=== PATIENT | male | born 1980 | race Hispanic/Latino ===

== ENCOUNTER 2017-08-15 18:58 | Emergency (ER) | payer SELFPAY ==
[2017-08-15] MEDS ORDERED: IBUPROFEN 400 MG TAB ONE (20:21)
[2017-08-15] MEDS ORDERED: CEPHALEXIN 250 MG CAP ONE (20:21)
--- NOTE | 2017-08-15 21:13 | ER ---
Nurse's Notes [facility] Name: Jason Alva Age: 36 yrs Sex: Male : 1980 Arrival Date: 08/15/2017 Time: 19:02 Bed 30 Private MD: Diagnosis: Laceration without foreign body of right index finger without damage to nail;Laceration without foreign body of right middle finger without damage to nail Presentation: 08/15 19:10 Presenting complaint: Patient states: Reports cutting right 2 nd and 3 rd digits with aj broken beer bottle last night. Full ROM noted in triage. Swelling noted to right 2 nd digit. 2 cm laceration noted to posterior right 2 nd digit and medial right 3 rd digit, no bleeding noted. Transition of care: patient was not received from another setting of care. Onset of symptoms was August 14, 2017. Care prior to arrival: None. 19:10 Method Of Arrival: Ambulatory aj 19:10 Acuity: MODE 4 aj Triage Assessment: 19:12 General: Appears in no apparent distress. comfortable, Behavior is calm, cooperative, aj appropriate for age. Pain: Complains of pain in dorsal aspect of middle phalanx of right index finger and palmar aspect of middle phalanx of right middle finger. Neuro: Level of Consciousness is awake, alert, obeys commands, Oriented to person, place, time, situation. Respiratory: Airway is patent Respiratory effort is even, unlabored, Respiratory pattern is regular, symmetrical. Derm: Skin is intact, is healthy with good turgor, Skin is pink, warm \T\ dry. normal. Musculoskeletal: Swelling present in dorsal aspect of middle phalanx of right index finger, dorsal aspect of proximal phalanx of right index finger and dorsal aspect of middle phalanx of right middle finger. Injury Description: Laceration sustained to dorsal aspect of middle phalanx of right index finger and palmar aspect of middle phalanx of right middle finger is clean, 0.5 to 2.5 cm long, was sustained 12-24 hours ago. no active bleeding noted at this time. Historical: - Allergies: 19:12 No Known Allergies; aj - Home Meds: 19:12 None [Active]; aj - PMHx: 19:12 None; aj - PSHx: 19:12 None; aj - Immunization history:: Last tetanus immunization: up to date. - Social history:: Smoking status: Patient/guardian denies using tobacco. Screenin:57 Abuse screen: Denies threats or abuse. Nutritional screening: No deficits noted. kb1 Tuberculosis screening: No symptoms or risk factors identified. Fall Risk None identified. Assessment: 19:57 General: Appears in no apparent distress. Behavior is calm, cooperative. Pain: kb1 Complains of pain in Right hand. Neuro: Level of Consciousness is awake, alert, obeys commands, Oriented to person, place, time, situation. Cardiovascular: Patient's skin is warm and dry. Respiratory: Airway is patent. GI: No signs and/or symptoms were reported involving the gastrointestinal system. : No signs and/or symptoms were reported regarding the genitourinary system. Derm: laceration to index and middle finger. States tripped last night and broke beer bottle in hand. 21:36 Reassessment: Patient appears in no apparent distress at this time. Patient and/or kb1 family updated on plan of care and expected duration. Pain level reassessed. Patient is alert, oriented x 3, equal unlabored respirations, skin warm/dry/pink. Vital Signs: 19:12 BP 151 / 105; Pulse 97; Resp 16; Temp 98.3; Pulse Ox 97% on R/A; Weight 90.72 kg; aj Height 5 ft. 11 in. (180.34 cm); Pain 4/10; 20:05 BP 121 / 88; kb1 19:12 Body Mass Index 27.89 (90.72 kg, 180.34 cm) aj ED Course: 19:02 Patient arrived in ED. mr 19:12 Triage completed. aj 19:12 Arm band placed on left wrist. Patient placed in waiting room, Patient notified of wait aj time. 19:14 Patient Provider evaluated patient in triage. aj 19:40 Aria Delcid, GRISEL is Primary Nurse. kb1 19:48 Jhonathan Leal PA is PHCP. cp 19:48 Malik Ontiveros MD is Attending Physician. cp 19:57 Patient has correct armband on for positive identification. Bed in low position. Call kb1 light in reach. Pulse ox on. NIBP on. 19:57 No provider procedures requiring assistance completed. Patient did not have IV access kb1 during this emergency room visit. 20:32 X-ray completed. Portable x-ray completed in exam room. Patient tolerated procedure bb2 well. 20:32 XRAY Hand RIGHT 3 View In Process Unspecified. EDMS 21:37 Wound care: to laceration located on Right index, middle, and ring finger was cleaned kb1 with Hibiclens, dressed with Neosporin, band aid. Administered Medications: 20:29 Drug: KeFLEX 500 mg Route: PO; kb1 21:38 Follow up: Response: No adverse reaction kb1 20:29 Drug: Ibuprofen 800 mg Route: PO; kb1 21:38 Follow up: Response: Pain is decreased kb1 Outcome: 21:12 Discharge ordered by . cp 21:37 Discharged to home ambulatory. kb1 21:37 Condition: improved 21:37 Discharge instructions given to patient, Instructed on discharge instructions, follow up and referral plans. medication usage, Demonstrated understanding of instructions, follow-up care, medications, Prescriptions given X 1. 21:39 Patient left the ED. kb1 Signatures: Dispatcher [employer] EDMS Malia Ying RN RN aj Rivera, Maria mr Jhonathan Leal PA PA cp Bock, Brittany bb2 Aria Delcid RN RN kb1 Corrections: (The following items were deleted from the chart) 19:12 19:10 Acuity: MODE 5 aj sherrie
--- NOTE | 2017-08-15 21:13 | RAD REPORT ---
EXAM DESCRIPTION: RAD - Hand Right 3 View - 08/15/2017 8:36 pm CLINICAL HISTORY: Hand pain comes second digit laceration COMPARISON: None. FINDINGS: No fracture is identified. There is no dislocation or periosteal reaction noted. Second d igit soft tissue injury is present with no foreign body. IMPRESSION: No acute bone or joint finding. No foreign body in the soft tissues.
--- NOTE | 2017-08-15 21:13 | EDPHYS ---
Physician Documentation [facility] Name: Jason Alva Age: 36 yrs Sex: Male : 1980 Arrival Date: 08/15/2017 Time: 19:02 Bed 30 Private MD: ED Physician Malik Ontiveros HPI: 08/15 20:30 This 36 yrs old Male presents to ER via Ambulatory with complaints of Finger cp Injury. 20:30 The patient or guardian reports injury, a laceration. The complaints affect the middle cp phalanx right index finger and middle phalanx right middle finger. 20:30 Context: resulted from a fall, while holding glass bottle. Onset: The symptoms/episode cp began/occurred last night, at 23:00. Historical: - Allergies: 19:12 No Known Allergies; aj - Home Meds: 19:12 None [Active]; aj - PMHx: 19:12 None; aj - PSHx: 19:12 None; aj - Immunization history:: Last tetanus immunization: up to date. - Social history:: Smoking status: Patient/guardian denies using tobacco. ROS: 20:35 Constitutional: Negative for body aches, chills, fever, poor PO intake. cp 20:35 Eyes: Negative for injury, pain, redness, and discharge. cp 20:35 Cardiovascular: Negative for chest pain, palpitations. 20:35 Respiratory: Negative for cough, shortness of breath, wheezing. 20:35 Abdomen/GI: Negative for abdominal pain, nausea, vomiting, and diarrhea. 20:35 Skin: Positive for laceration(s), of the right hand. 20:35 Neuro: Negative for altered mental status, headache, numbness, tingling, weakness. 20:35 All other systems are negative. Exam: 20:35 Constitutional: The patient appears in no acute distress, alert, awake, well developed, cp well nourished. 20:35 Head/Face: Normocephalic, atraumatic. cp 20:35 Eyes: Periorbital structures: appear normal, Conjunctiva: normal, no exudate, no injection, Lids and lashes: appear normal, bilaterally. 20:35 ENT: External ear(s): are unremarkable, Nose: is normal, Mouth: is normal. 20:35 Chest/axilla: Inspection: normal. 20:35 Cardiovascular: Rate: normal. 20:35 Respiratory: the patient does not display signs of respiratory distress, Respirations: normal, no use of accessory muscles, no retractions, no splinting, no tachypnea. 20:35 Abdomen/GI: Exam negative for discomfort, distension, guarding, Inspection: abdomen appears normal. 20:35 Musculoskeletal/extremity: Sensation intact. Tendon exam: specific tendon testing normal through active and passive range of motion 20:35 Skin: injury, laceration(s), the wound is approximately 2 cm(s), of the middle phalanx cp lateral side right index finger, the second wound is approximately 2 cm(s), of the middle phalanx lateral side right middle finger, that can be described as no foreign body, linear, without bleeding, noted mild erythema, mild swelling. Vital Signs: 19:12 BP 151 / 105; Pulse 97; Resp 16; Temp 98.3; Pulse Ox 97% on R/A; Weight 90.72 kg; aj Height 5 ft. 11 in. (180.34 cm); Pain 4/10; 20:05 BP 121 / 88; kb1 19:12 Body Mass Index 27.89 (90.72 kg, 180.34 cm) aj MDM: 19:48 Patient medically screened. 21:09 Data reviewed: vital signs, nurses notes, radiologic studies, plain films. 08/15 19:57 Order name: XRAY Hand RIGHT 3 View; Complete Time: 21:17 cp 08/15 21:17 Interpretation: Report reviewed. cp Administered Medications: 20:29 Drug: KeFLEX 500 mg Route: PO; kb1 21:38 Follow up: Response: No adverse reaction kb1 20:29 Drug: Ibuprofen 800 mg Route: PO; kb1 21:38 Follow up: Response: Pain is decreased kb1 Disposition: 08/16 05:56 Co-signature as Attending Physician, Malik Ontiveros MD I agree with the assessment and [facility] plan of care. Disposition: 08/15/17 21:12 Discharged to Home. Impression: Laceration without foreign body of right index finger without damage to nail, Laceration without foreign body of right middle finger without damage to nail. - Condition is Stable. - Discharge Instructions: Laceration Care, Adult. - Prescriptions for Keflex 500 mg Oral Capsule - take 1 capsule by ORAL route every 6 hours for 10 days; 40 capsule. - Medication Reconciliation Form, Thank You Letter, Antibiotic Education, Prescription Opioid Use form. - Follow up: Private Physician; When: 48 Hours; Reason: Wound Recheck. - Problem is new. - Symptoms are unchanged. Signatures: Dispatcher [employer] Malia Burns RN RN Jhonathan Bruno PA PA cp Wadley, Terrence, MD MD tw4 Aria Delcid RN RN kb1 Corrections: (The following items were deleted from the chart) 08/15 21:06 21:03 This 36 yrs old Male presents to ER via Ambulatory with complaints of cp Finger Injury. cp
== END 2017-08-15 21:39 | disposition home or self-care (01) ==
LOC: ER 18:58
DX: S61.212A Laceration without foreign body of right middle finger without damage to nail, initial encounter (principal); W25.XXXA Contact with sharp glass, initial encounter; Y93.89 Activity, other specified; Y92.9 Unspecified place or not applicable
CPT/HCPCS: 99284